=== PATIENT | female | born 1980 | race Caucasian/White ===

== ENCOUNTER 2017-08-18 13:16 | Emergency (ER) | payer OTHER, MEDICARE ==
[~2017-08-18] VITALS: Ht 175.3 cm; Wt 127.0 kg
[~2017-08-18 13:16] MED LIST: ACEBUTCAFT PO; ALBU90OI61 INH; AMOX500 PO; CEPH500 PO; PSEU30; Percocet 5-3251 EACH PO; Prenatabs FA T1 EACH PO; TRAZ100 PO; Veetids 500500 MG PO; Zofran Odt4 MG SL; Zofran Odt8 MG SL
[2017-08-18] MEDS ORDERED: Percocet 5-3251 EACH PO (14:09)
== END 2017-08-18 14:50 | disposition home or self-care (01) ==
LOC: ER 13:16
DX: S82.64XA Nondisplaced fracture of lateral malleolus of right fibula, initial encounter for closed fracture (principal); F32.9 Major depressive disorder, single episode, unspecified; F41.9 Anxiety disorder, unspecified; J45.909 Unspecified asthma, uncomplicated; Z88.0 Allergy status to penicillin; W19.XXXA Unspecified fall, initial encounter
CPT/HCPCS: 29515; 73610; 99283

== ENCOUNTER 2018-07-20 05:46 | Inpatient (IN) | payer OTHER, MEDICARE ==
[~2018-07-20] VITALS: Ht 175.3 cm; Wt 147.0 kg
[2018-07-20 07:45] LABS: BASOPHILS ABSOLUTE AUTO 0.02 K/mm3 (0.00-0.23); BASOPHILS PERCENT AUTO 0 % (0-2); EOSINOPHILS ABSOLUTE AUTO 0.14 K/mm3 (0.00-0.68); EOSINOPHILS PERCENT AUTO 2 % (0-6); Hematocrit 33.4 % (33.0-51.0); Hemoglobin 10.9 g/dL (11.5-16.0); IMMATURE GRAN ABSOLUTE AUTO 0.02 K/mm3 (0.00-0.10); IMMATURE GRAN PERCENT AUTO 0 % (0-1); LYMPHOCYTES ABSOLUTE AUTO 1.25 K/mm3 (0.84-5.20); LYMPHOCYTES PERCENT AUTO 17 % (21-46); MONOCYTES ABSOLUTE AUTO 0.62 K/mm3 (0.16-1.47); MONOCYTES PERCENT AUTO 8 % (4-13); Mean Corpuscular HGB 28.1 pg (26.0-34.0); Mean Corpuscular HGB Conc 32.6 g/dL (31.5-36.5); Mean Corpuscular Volume 86 fL (80-100); Mean Platelet Volume 11.1 fL (9.1-12.4); NEUTROPHILS ABSOLUTE AUTO 5.33 K/mm3 (1.96-9.15); NEUTROPHILS PERCENT AUTO 72 % (41-73); Platelet Count 279 K/mm3 (150-400); RDW Standard Deviation 49.3 fL (35.1-46.3); Red Blood Cell Count 3.88 M/mm3 (3.80-5.20); White Blood Cell Count 7.38 K/mm3 (4.00-11.30)
[2018-07-20] MEDS ORDERED: ALBU90OI6 INH (08:12)
[2018-07-20] MEDS ORDERED: GENTAK BOTHEARS (08:14)
[2018-07-20] MEDS ORDERED: ACULAR5 ML BOTHEYES (08:14)
[2018-07-20] MEDS ORDERED: PRENATAL GUMMI1 EACH (08:15)
--- NOTE | 2018-07-21 00:02 | NUR ---
PT REQUESTED BREATHING TREATMENT BEFORE FALLING ASLEEP, BIPIN Santamaria,RT IN ROOM TO GIVE PT TREATMENT
--- NOTE | 2018-07-21 04:01 | NUR ---
RN INTO ROOM TO CHECK ON PT AND GET VITALS. PT ASLEEP IN BED ON SIDE. PT UNDISTURBED WHILE RN IN ROOM. FOB AWAKE TO TAKE CARE OF NB
[2018-07-21 06:11] LABS: Hematocrit 32.6 % (33.0-51.0); Hemoglobin 10.6 g/dL (11.5-16.0); Mean Corpuscular HGB 28.6 pg (26.0-34.0); Mean Corpuscular HGB Conc 32.5 g/dL (31.5-36.5); Mean Corpuscular Volume 88 fL (80-100); Mean Platelet Volume 11.2 fL (9.1-12.4); Platelet Count 254 K/mm3 (150-400); RDW Standard Deviation 50.4 fL (35.1-46.3); Red Blood Cell Count 3.71 M/mm3 (3.80-5.20); White Blood Cell Count 10.27 K/mm3 (4.00-11.30)
[2018-07-21] MEDS ORDERED: IBUP800 PO (15:09)
--- NOTE | 2018-07-21 16:41 | NUR ---
PATIENT ALREADY HAS PORTAL ACCOUNT WILL ADD BABY TO HER ACCOUNT WHEN SHE DISCHARGES HOME
--- NOTE | 2018-07-21 18:09 | NUR ---
Printed d/c instructions and teaching reviewed w/pt. questions answered to her satsifaction.
--- NOTE | 2018-07-21 19:37 | NUR ---
No acute changes t/o shift. Pt d/c'd home ambulatory to care of .
== END 2018-07-21 19:38 | disposition home or self-care (01) | DRG 806 ==
LOC: BC 05:46
PROVIDERS: ADMIT Obstetrics & Gynecology
PROC: 10E0XZZ Delivery of Products of Conception, External Approach (ICD-10-PCS; principal; 2018-07-20)
PROC: 10907ZC Drainage of Amniotic Fluid, Therapeutic from Products of Conception, Via Natural or Artificial Opening (ICD-10-PCS; 2018-07-20)
PROC: 3E033VJ Introduction of Other Hormone into Peripheral Vein, Percutaneous Approach (ICD-10-PCS; 2018-07-20)
PROC: 0UQGXZZ Repair Vagina, External Approach (ICD-10-PCS; 2018-07-20)
PROC: 6A550ZT Pheresis of Cord Blood Stem Cells, Single (ICD-10-PCS; 2018-07-20)
PROC: 3E0R3BZ Introduction of Anesthetic Agent into Spinal Canal, Percutaneous Approach (ICD-10-PCS; 2018-07-20)
PROC: 00HU33Z Insertion of Infusion Device into Spinal Canal, Percutaneous Approach (ICD-10-PCS; 2018-07-20)
DX: O32.0XX0 Maternal care for unstable lie, not applicable or unspecified (principal); O71.4 Obstetric high vaginal laceration alone; Z37.0 Single live birth; O99.52 Diseases of the respiratory system complicating childbirth; J45.909 Unspecified asthma, uncomplicated; O99.824 Streptococcus B carrier state complicating childbirth; Z3A.39 39 weeks gestation of pregnancy; O69.81X0 Labor and delivery complicated by cord around neck, without compression, not applicable or unspecified
CPT/HCPCS: 36415; 51702; 85025; 85027; 90707; 94640; 94760; J0690; J1885; J2001; J2405; J2590; J3010; J7120

== ENCOUNTER → 2021-01-09 | Outpatient (CLI) | payer OTHER, MEDICARE ==
[~2021-01-09] MED LIST changes: +ACULAR5 ML BOTHEYES; +ALBU90OI6 INH; +GENTAK BOTHEARS; +IBUP800 PO; +PRENATAL GUMMI1 EACH
[2021-01-10 15:10] LABS: HPV 16 Negative (Negative); HPV 18 Negative (Negative); HPV OTHER HR TYPES Negative (Negative)
== END | disposition home or self-care (01) ==
LOC: LAB 13:54 → LAB SHORT 13:54
PROVIDERS: Family Medicine
DX: Z01.419 Encounter for gynecological examination (general) (routine) without abnormal findings (principal)
CPT/HCPCS: 87624; G0123

== ENCOUNTER 2022-06-29 06:52 | Emergency (ER) | payer OTHER, MEDICARE ==
[~2022-06-29] VITALS: Ht 177.8 cm; Wt 176.9 kg
[~2022-06-29 06:52] MED LIST changes: +Flovent 44 mc10.6 GM INH; +PROM25 PO; +PSEUDOEPHEDRINE30 M1 PO
[2022-06-29] MEDS ORDERED: LIDO5TO TOP (08:50)
[2022-06-29 08:58] VITALS: BP 161/100
== END 2022-06-29 09:05 | disposition home or self-care (01) ==
LOC: ER 06:52
DX: M75.22 Bicipital tendinitis, left shoulder (principal); Z88.0 Allergy status to penicillin; Z88.8 Allergy status to other drugs, medicaments and biological substances; Z91.018 Allergy to other foods; Z79.899 Other long term (current) drug therapy; J45.909 Unspecified asthma, uncomplicated
CPT/HCPCS: A9270